=== PATIENT | male | born 1960 | race Caucasian/White ===

== ENCOUNTER 2019-06-22 18:26 | Inpatient (IN) ==
[2019-06-22 22:20] LABS: Basophils % 0.1 % (0.0-0.8); Hematocrit 50.9 VOL% (42.0-52.0); Hemoglobin 16.4 GM/DL (14.0-18.0); Immature Granulocytes % 0.4 %; Immature Granulocytes Absolute 0.07 #; Lymphocytes # 0.3 10*3/uL (1.4-4.0); Lymphocytes % 1.8 % (21.2-54.2); Mean Corpuscular HGB Conc 32.2 GM/DL (32-36); Mean Corpuscular Volume 90.9 FL (87-102); Mean Platelet Volume 11.1 FL (9.6-12.0); Neutrophils % 94.7 % (38.7-73.9); Platelet Count 165 T/CUMM (130-400); Red Cell Distribution Width 13.4 % (9.3-17.3); White Blood Count 17.5 T/CUMM (4-12)
[2019-06-22 22:31] LABS: Albumin 3.3 G/DL (3.4-5.0); Bilirubin,Total 3.6 MG/DL (0.2-1.0); Calcium 8.8 MG/DL (8.5-10.1)
[2019-06-22] MEDS ORDERED: DEXTROSE 50% 25 GM/50 ML SYRINGE IV PRN (22:33)
[2019-06-22] MEDS ORDERED: GLUCAGON 1 MG VIAL IM PRN (22:33)
[2019-06-22 22:37] LABS: Acetaminophen < 2.0 UG/ML (10-30); Salicylate < 2.8 MG/DL (2.8-20)
[2019-06-22 22:45] LABS: INR 1.1; PT Patient Result 12.1 SECS (9.6-12.2); Partial Thromboplastin Time 29.7 SECS (20.8-36.0)
[2019-06-22 23:23] LABS: Hepatitis B Surface Ag Quant < 0.10 Index; Hepatitis B Surface Ag Result Negative (Negative); Hepatitis C Virus Ab Quant 0.06 Index; Hepatitis C Virus Ab Result Negative (Negative)
[2019-06-23] MEDS: SODIUM CHLORIDE 0.9% 1,000 ML IV SCH ×2 (00:34→06:53)
[2019-06-23] MEDS: PIPERACILLIN/TAZOBACTAM 3,375 MG in SODIUM CHLORIDE 0.9% 100 ML IV SCH ×3 (00:35→16:35)
[2019-06-23] MEDS: PANTOPRAZOLE 40 MG VIAL IV SCH ×2 (00:35→08:13)
[2019-06-23 00:43] LABS: Anisocytosis 1+; Eosinophils 1 % (0-10); Lymphocytes 3 % (20-55); Platelet Estimate Adequate; Segmented Neutrophils 92 % (50-85); Total Cells Counted 100
[2019-06-23] MEDS: INSULIN LISPRO 100 UNIT/ML SUBCUT SCH ×4 (00:48→17:30)
[2019-06-23 06:09] LABS: Albumin 3.1 G/DL (3.4-5.0); Bilirubin,Total 3.3 MG/DL (0.2-1.0); Calcium 8.4 MG/DL (8.5-10.1); Osmolality,Calculated 264.5 MOS/KG (273-304); Total Protein 6.6 G/DL (6.4-8.3)
[2019-06-23 06:12] LABS: Basophils % 0.2 % (0.0-0.8); Hematocrit 46.6 VOL% (42.0-52.0); Hemoglobin 15.1 GM/DL (14.0-18.0); Immature Granulocytes % 0.2 %; Immature Granulocytes Absolute 0.03 #; Lymphocytes # 0.5 10*3/uL (1.4-4.0); Lymphocytes % 3.6 % (21.2-54.2); Mean Corpuscular HGB Conc 32.4 GM/DL (32-36); Mean Corpuscular Volume 90.5 FL (87-102); Mean Platelet Volume 11.7 FL (9.6-12.0); Monocytes % 3.4 % (1.7-12.7); Neutrophils % 92.6 % (38.7-73.9); Platelet Count 155 T/CUMM (130-400); Red Blood Count 5.15 MC/CUMM (3.8-5.5); Red Cell Distribution Width 13.6 % (9.3-17.3); White Blood Count 12.9 T/CUMM (4-12)
[2019-06-23 06:43] LABS: Band Neutrophils 7 % (0-10); Lymphocytes 5 % (20-55); Segmented Neutrophils 88 % (50-85)
[2019-06-23 06:44] LABS: Platelet Estimate Normal; Total Cells Counted 100
[2019-06-23 07:03] LABS: Barbiturates Screen,Urine Negative (Negative); Benzodiazepines Screen,Urine Negative (Negative); Cannabinoid Screen,Urine Negative (Negative); Opiate Screen,Urine Negative (Negative); Phencyclidine Screen,Urine Negative (Negative)
[2019-06-23] MEDS: SODIUM BICARBONATE 650 MG TABLET PO SCH ×4 (08:13→20:14)
[2019-06-23] MEDS: ONDANSETRON 4 MG/2 ML VIAL IV PRN (08:38)
[2019-06-23] MEDS ORDERED: SODIUM CHLORIDE 0.9% 1,000 ML IV SCH (12:00)
[2019-06-23] MEDS: MESALAMINE 800 MG TABLET PO SCH (20:13)
[2019-06-23] MEDS: GABAPENTIN 300 MG CAPSULE PO SCH (20:13)
[2019-06-23] MEDS: ATORVASTATIN 40 MG TABLET PO SCH (20:13)
[2019-06-23] MEDS: PANTOPRAZOLE 40 MG TABLET PO SCH (20:13)
[2019-06-24] MEDS: PIPERACILLIN/TAZOBACTAM 3,375 MG in SODIUM CHLORIDE 0.9% 100 ML IV SCH ×3 (00:44→17:13)
[2019-06-24] MEDS: INSULIN LISPRO 100 UNIT/ML SUBCUT SCH ×4 (00:46→17:13)
[2019-06-24 05:58] LABS: Basophils % 0.2 % (0.0-0.8); Eosinophils % 0.4 % (0.00-10.9); Hemoglobin 14.8 GM/DL (14.0-18.0); Immature Granulocytes % 0.5 %; Immature Granulocytes Absolute 0.03 #; Lymphocytes # 0.4 10*3/uL (1.4-4.0); Mean Corpuscular HGB Conc 32.9 GM/DL (32-36); Mean Corpuscular Volume 88.8 FL (87-102); Mean Platelet Volume 11.2 FL (9.6-12.0); Monocytes % 7.2 % (1.7-12.7); Neutrophils % 84.7 % (38.7-73.9); Platelet Count 140 T/CUMM (130-400); Red Blood Count 5.07 MC/CUMM (3.8-5.5); Red Cell Distribution Width 13.2 % (9.3-17.3); White Blood Count 5.7 T/CUMM (4-12)
[2019-06-24 06:13] LABS: PT Patient Result 10.6 SECS (9.6-12.2)
[2019-06-24 06:34] LABS: Calcium 8.3 MG/DL (8.5-10.1); Osmolality,Calculated 265.4 MOS/KG (273-304)
[2019-06-24 06:39] LABS: Albumin 2.9 G/DL (3.4-5.0); Bilirubin,Direct 0.84 MG/DL (0.0-0.20); Bilirubin,Total 1.8 MG/DL (0.2-1.0); Total Protein 6.6 G/DL (6.4-8.3)
[2019-06-24] MEDS: SODIUM BICARBONATE 650 MG TABLET PO SCH ×2 (08:43→20:20)
[2019-06-24] MEDS: MESALAMINE 800 MG TABLET PO SCH (08:44)
[2019-06-24] MEDS: ATORVASTATIN 40 MG TABLET PO SCH (08:45)
[2019-06-24] MEDS: GABAPENTIN 300 MG CAPSULE PO SCH ×2 (08:45→20:20)
[2019-06-24] MEDS ORDERED: LIDOCAINE 2% 5 ML VIAL ONE (09:00)
[2019-06-24] MEDS ORDERED: ONDANSETRON 4 MG/2 ML VIAL ONE (09:00)
[2019-06-24] MEDS ORDERED: ROCURONIUM 100 MG/10 ML VIAL IV ONE (09:00)
[2019-06-24] MEDS ORDERED: DEXAMETHASONE 4 MG/1 ML VIAL ONE (09:00)
[2019-06-24] MEDS ORDERED: SUCCINYLCHOLINE 200 MG/10 ML VIAL ONE (09:00)
[2019-06-24] MEDS ORDERED: MIDAZOLAM 2 MG/2 ML VIAL ONE ×2 (09:00→12:30)
[2019-06-24] MEDS ORDERED: propofoL 200 MG/20 ML VIAL IV ONE (09:00)
[2019-06-24] MEDS ORDERED: fentaNYL 100 MCG/2 ML VIAL ONE ×3 (09:00→13:02)
[2019-06-24] MEDS: PANTOPRAZOLE 40 MG TABLET PO SCH (10:26)
[2019-06-24] MEDS: LACTATED RINGERS 1,000 ML IV SCH (12:10)
[2019-06-24] MEDS ORDERED: INDOMETHACIN SUPP 50 MG SUPP RECTAL ONE ×2 (12:22→12:59)
[2019-06-24] MEDS ORDERED: FAMOTIDINE 20 MG/2 ML VIAL IV ONE (12:31)
[2019-06-24] MEDS ORDERED: SEVOFLURANE 1 UNIT/15 MINUTE INH ONE (14:05)
[2019-06-24] MEDS: ONDANSETRON 4 MG/2 ML VIAL IV PRN (14:49)
[2019-06-25] MEDS: PIPERACILLIN/TAZOBACTAM 3,375 MG in SODIUM CHLORIDE 0.9% 100 ML IV SCH ×2 (00:13→09:01)
[2019-06-25] MEDS: INSULIN LISPRO 100 UNIT/ML SUBCUT SCH ×3 (00:15→12:59)
[2019-06-25] MEDS: ONDANSETRON 4 MG/2 ML VIAL IV PRN (02:10)
[2019-06-25 05:09] LABS: Hemoglobin 15.1 GM/DL (14.0-18.0); Immature Granulocytes % 0.6 %; Immature Granulocytes Absolute 0.03 #; Lymphocytes # 0.4 10*3/uL (1.4-4.0); Mean Corpuscular HGB Conc 32.8 GM/DL (32-36); Mean Corpuscular Volume 89.1 FL (87-102); Mean Platelet Volume 10.6 FL (9.6-12.0); Monocytes % 5.1 % (1.7-12.7); Neutrophils % 86.3 % (38.7-73.9); Platelet Count 152 T/CUMM (130-400); Red Blood Count 5.16 MC/CUMM (3.8-5.5); Red Cell Distribution Width 13.2 % (9.3-17.3); White Blood Count 4.9 T/CUMM (4-12)
[2019-06-25 05:49] LABS: Albumin 2.8 G/DL (3.4-5.0); Bilirubin,Direct 1.69 MG/DL (0.0-0.20); Bilirubin,Indirect 0.9 MG/DL (0.0-1.0); Bilirubin,Total 2.6 MG/DL (0.2-1.0); Total Protein 6.7 G/DL (6.4-8.3)
[2019-06-25 05:52] LABS: Albumin 2.8 G/DL (3.4-5.0); Bilirubin,Total 3.1 MG/DL (0.2-1.0); Calcium 8.4 MG/DL (8.5-10.1); Osmolality,Calculated 271.4 MOS/KG (273-304); Total Protein 6.7 G/DL (6.4-8.3)
[2019-06-25] MEDS: MESALAMINE 800 MG TABLET PO SCH (08:54)
[2019-06-25] MEDS: PANTOPRAZOLE 40 MG TABLET PO SCH (08:54)
[2019-06-25] MEDS: SODIUM BICARBONATE 650 MG TABLET PO SCH (08:55)
[2019-06-25] MEDS: GABAPENTIN 300 MG CAPSULE PO SCH (08:55)
[2019-06-25] MEDS: LACTATED RINGERS 1,000 ML IV SCH (14:06)
[2019-06-25 16:05] VITALS: BP 113/68
== END 2019-06-25 17:15 | disposition home or self-care (01) | DRG 445 ==
LOC: N.5E → SUATTDRO 21:20
PROVIDERS: ADMIT Internal Medicine; ATTEND Family Medicine
PROC: ERCPWSP (ICD-10-PCS; 2019-06-24 11:35)